=== PATIENT | male | born 1960 | race Caucasian/White ===

== ENCOUNTER 2017-11-28 13:43 | Inpatient (IN) | payer OTHER ==
[2017-11-28] MEDS ORDERED: ONDANSETRON 4 MG/2 ML VIAL IVP STA (14:12)
[2017-11-28] MEDS ORDERED: MORPHINE SULFATE 4 MG/ML SYRINGE IV STA (14:12)
[2017-11-28] MEDS ORDERED: SODIUM CHLORIDE 0.9% 1,000 ML IV STA (14:12)
--- NOTE | 2017-11-28 14:12 | ED ---
General Adult HPI - General Chief complaint: Nausea/Vomiting/Diarrhea Stated complaint: Abd.pain/nausea Time Seen by Provider: 11/28/17 13:56 Source: family, RN notes reviewed Mode of arrival: wheelchair Limitations: no limitations - History of Present Illness Initial comments: Patient's a 57-year-old male with significant past medical history for melanoma of his long, presented to the emergency room today with chief complaint of symptoms of nausea vomiting and diarrhea over the last 4 days. Patient having a difficult time keeping anything down at home last 4 days. States had an episode of diarrhea this morning. She is passing small 1 of gas. She states exam feels more full distended. States has had multiple episodes of nausea vomiting. No signs of blood in the emesis or stool. Does make to abdominal cramping throughout the abdomen worse on the left side. Denies any other complaints.Patient denies any recent fever, chills, shortness of breath, chest pain, back pain, numbness or tingling, dysuria or hematuria, constipation, headaches or visual changes, or any other complaints. - Related Data Home Medications Medication Instructions Recorded Confirmed Losartan [Cozaar] 50 mg PO DAILY 11/28/17 11/28/17 Metoprolol Succinate (ER) [Toprol 50 mg PO DAILY 11/28/17 11/28/17 Xl] Omeprazole 20 mg PO DAILY 11/28/17 11/28/17 Phenylephrine HCl [Sudafed PE] 10 mg PO Q6H PRN 11/28/17 11/28/17 Tafinlar(Unknown) 2 tab PO BID 11/28/17 11/28/17 Trametinib Dimethyl Sulfoxide 0.5 mg PO DAILY 11/28/17 11/28/17 [Mekinist] Allergies Allergy/AdvReac Type Severity Reaction Status Date / Time acetaminophen Allergy Unknown Verified 11/28/17 14:40 fish oil Allergy Unknown Verified 11/28/17 14:40 meclizine Allergy Unknown Verified 11/28/17 14:40 NSAIDS (Non-Steroidal Allergy Unknown Verified 11/28/17 14:40 Anti-Inflamma Review of Systems ROS Statement: Those systems with pertinent positive or pertinent negative responses have been documented in the HPI. ROS Other: All systems not noted in ROS Statement are negative. Past Medical History Past Medical History: Cancer, Hypertension Additional Past Medical History / Comment(s): vertigo, lung cancer, spinal stenosis History of Any Multi-Drug Resistant Organisms: None Reported Past Surgical History: Back Surgery, Cholecystectomy, Hernia Repair, Joint Replacement Past Psychological History: Anxiety Smoking Status: Never smoker Past Alcohol Use History: None Reported Past Drug Use History: None Reported General Exam - General Exam Comments Initial Comments: General: The patient is awake and alert, in no distress, and does not appear acutely ill. Eye: Extra-ocular movements are intact. No nystagmus. There is normal conjunctiva bilaterally. No signs of icterus. Ears, nose, mouth and throat: There are moist mucous membranes and no oral lesions. Neck: The neck is supple, there is no tenderness or JVD. Cardiovascular: There is a regular rate and rhythm. No murmur, rub or gallop is appreciated. Respiratory: Lungs are clear to auscultation, respirations are non-labored, breath sounds are equal. No wheezes, stridor, rales, or rhonchi. Gastrointestinal: Abdomen soft on palpation. Patient does have tenderness greatest in the left upper and lower quads. No rebound, guarding or CVA tenderness. Musculoskeletal: Normal ROM, no tenderness. Sensation intact. Strength 5/5. Pulses equal bilaterally 2+. Neurological: A&O x 3. CN II-XII intact, There are no obvious motor or sensory deficits. Coordination appears grossly intact. Speech is normal. Skin: Skin is warm and dry and no rashes or lesions are noted. Psychiatric: Cooperative, appropriate mood & affect, normal judgment. Limitations: no limitations Course Vital Signs 11/28/17 13:49 Temperature 98.5 F Pulse Rate 84 Respiratory 18 Rate Blood Pressure 95/63 O2 Sat by Pulse 100 Oximetry Medical Decision Making - Medical Decision Making Patient reexamined at this time still experiencing some discomfort to the abdomen. Patient's labs been reviewed. Patient has had nausea vomiting for the past [address] shows 2.1 cm suspicious mass in the right upper lobe. 4 mm nonspecific left upper lobe nodule. There are multiple small soft tissue nodules in the anterior mesentery within the left upper quadrant. Findings are suspicious for omental or mesenteric seeding. There appears to be larger soft tissue density measuring 3 cm the left upper quadrant anterior Sh[place]an for small bowel masses as read by radiology doctor Ling. Patient still continued pain here in the emergency room sent nausea vomiting. Will be admitted to the hospital for intractable nausea vomiting abdominal pain. - Lab Data Result diagrams: 11/28/17 14:19 11/28/17 14:19 Lab Results 11/28/17 11/28/17 11/28/17 Range/Units 14:19 14:19 14:19 WBC 7.5 (3.8-10.6) k/uL RBC 3.93 L (4.30-5.90) m/uL Hgb 10.3 L (13.0-17.5) gm/dL Hct 31.3 L (39.0-53.0) % MCV 79.6 L D (80.0-100.0) fL MCH 26.3 (25.0-35.0) pg MCHC 33.0 (31.0-37.0) g/dL RDW 14.4 (11.5-15.5) % Plt Count 421 (150-450) k/uL Neutrophils % 64 % Lymphocytes % 22 % Monocytes % 11 % Eosinophils % 1 % Basophils % 0 % Neutrophils # 4.8 (1.3-7.7) k/uL Lymphocytes # 1.6 (1.0-4.8) k/uL Monocytes # 0.8 (0-1.0) k/uL Eosinophils # 0.1 (0-0.7) k/uL Basophils # 0.0 (0-0.2) k/uL Hypochromasia Slight Poikilocytosis Slight PT 9.8 (9.0-12.0) sec INR 1.0 (<1.2) APTT 28.4 (22.0-30.0) sec Sodium 137 (137-145) mmol/L Potassium 4.0 (3.5-5.1) mmol/L Chloride 104 (98-107) mmol/L Carbon Dioxide 24 (22-30) mmol/L Anion Gap 9 mmol/L BUN 25 H (9-20) mg/dL Creatinine 0.91 (0.66-1.25) mg/dL Est GFR (CKD-EPI)AfAm >90 (>60 ml/min/1.73 sqM) Est GFR (CKD-EPI)NonAf >90 (>60 ml/min/1.73 sqM) Glucose 104 H (74-99) mg/dL Calcium 9.4 (8.4-10.2) mg/dL Total Bilirubin 0.3 (0.2-1.3) mg/dL AST 26 (17-59) U/L ALT 33 (21-72) U/L Alkaline Phosphatase 102 (38-126) U/L Total Protein 6.1 L (6.3-8.2) g/dL Albumin 3.5 (3.5-5.0) g/dL Amylase 63 (30-110) U/L Lipase 156 (23-300) U/L Disposition Clinical Impression: Intractable nausea and vomiting, Abdominal pain Disposition: TRANSFER TO PSYCH HOSP/UNIT Condition: Stable Is patient prescribed a controlled substance at d/c from ED?: No Referrals: Nissa England III, MD [Primary Care Provider] - 1-2 days Time of Disposition: 15:54
[2017-11-28 14:48] LABS: ALT 33 U/L (21-72); AST 26 U/L (17-59); Albumin 3.5 g/dL (3.5-5.0); Alkaline Phosphatase 102 U/L (38-126); Amylase 63 U/L (30-110); Anion Gap 9 mmol/L; Blood Urea Nitrogen 25 mg/dL (9-20); Calcium 9.4 mg/dL (8.4-10.2); Carbon Dioxide 24 mmol/L (22-30); Chloride 104 mmol/L (98-107); Glucose 104 mg/dL (74-99); Lipase 156 U/L (23-300); Sodium 137 mmol/L (137-145); Total Bilirubin 0.3 mg/dL (0.2-1.3); Total Protein 6.1 g/dL (6.3-8.2)
[2017-11-28 15:07] LABS: Partial Thromboplastin Time 28.4 sec (22.0-30.0); Prothrombin Time 9.8 sec (9.0-12.0)
[2017-11-28 15:09] LABS: Basophils % (A) 0 %; Eosinophils # (A) 0.1 k/uL (0-0.7); Eosinophils % (A) 1 %; HCT 31.3 % (39.0-53.0); HGB 10.3 gm/dL (13.0-17.5); Hypochromasia Slight; Lymphocytes # (A) 1.6 k/uL (1.0-4.8); Lymphocytes % (A) 22 %; MCH 26.3 pg (25.0-35.0); Mean Platelet Volume 6.7; Monocytes # (A) 0.8 k/uL (0-1.0); Monocytes % (A) 11 %; Neutrophils # (A) 4.8 k/uL (1.3-7.7); Neutrophils % (A) 64 %; Platelet Count 421 k/uL (150-450); Poikilocytosis Slight; RBC 3.93 m/uL (4.30-5.90); RDW 14.4 % (11.5-15.5); WBC 7.5 k/uL (3.8-10.6)
[2017-11-28 15:10] LABS: MCV 79.6 fL (80.0-100.0)
--- NOTE | 2017-11-28 15:35 | CT ---
EXAMINATION TYPE: CT ChestAbdPelvis w con DATE OF EXAM: 11/28/2017 COMPARISON: 07/24/2012 HISTORY: Abdominal pain and vomiting x [address] DLP: 2218 mGycm Automated exposure control for dose reduction was used. CONTRAST: CT scan of the chest, abdomen and pelvis is performed without Oral Contrast and with IV Contrast, pat ient injected with 100 mL of Isovue M300. FINDINGS: LUNGS: There is a 2.1 cm mass anterior segment right upper lobe. No pneumothorax, consolidation, or p leural effusion. Within the left upper lobe there is a 4 mm nodule laterally image 33. MEDIASTINUM: There is coronary artery calcification. No pathologic adenopathy. OTHER: There is ectasia of the abdominal aorta measuring a maximal dimension of 2.8 cm. Atherosclero tic changes are noted. LIVER/GB: Previous gallbladder surgery noted. Mild intrahepatic biliary ductal dilation likely post c holecystectomy. PANCREAS: No significant abnormality is seen. SPLEEN: No significant abnormality is seen. ADRENALS: No significant abnormality is seen. KIDNEYS: No significant abnormality is seen. BOWEL: Diverticulosis of colon noted. No oral contrast is seen therefore assessment for bowel wall t hickening or bowel mass is limited. Retained fecal debris throughout the colon also limits assessment . There is concern for colonic or small bowel mass correlate with additional imaging or direct visual ization. There is soft tissue fullness measuring 3.1 cm within the anterior left abdomen which could be related to small bowel wall involvement and small bowel ligaments the. Without contrast is difficu lt to determine if this is related to the wall the bowel or adjacent conglomerate adenopathy. LYMPH NODES: No greater than 1 cm abdominal or pelvic lymph nodes are appreciated. However there are multiple small less than 1 cm hypoechoic nodules particularly within the left anterior mesentery susp icious for mesenteric seeding. OSSEOUS STRUCTURES: Hypertrophic and degenerative changes spine noted. Correlate for previous laminec kassie lower lumbar spine. OTHER: Atherosclerotic changes of the vasculature. No free fluid or free air. Correlate for previous abdominal wall surgery. Metallic densities noted. IMPRESSION: 1. There is a 2.1 cm suspicious mass right upper lobe. 4 mm nonspecific left upper lobe nodule. 2. There are multiple small soft tissue nodules in the anterior mesentery within the left upper quadr ant. Findings are suspicious for omental or mesenteric seeding. There appears to be a larger t soft t issue density measuring 3 cm the left upper quadrant anteriorly correlate for small bowel mass or con glomerate adenopathy. Favor small bowel mass and neoplasm.
--- NOTE | 2017-11-28 15:36 | XR ---
EXAMINATION TYPE: XR chest 2V DATE OF EXAM: 11/28/2017 COMPARISON: 04/25/2013 TECHNIQUE: PA and lateral views submitted. HISTORY: Cough FINDINGS: On the lateral view there is a mass within the right upper lobe measuring 2.8 cm. No consolidation, p leural effusion or pneumothorax. Heart size within normal limits. IMPRESSION: 1. Right upper lobe lung mass suspicious for malignancy.
[2017-11-28] MEDS ORDERED: HYDROmorphone 1 MG/ML 1 ML SYRINGE IVP PRN (15:55)
[2017-11-28] MEDS ORDERED: SODIUM CHLORIDE 0.9% 1,000 ML IV ONE (15:55)
[2017-11-28] MEDS ORDERED: MORPHINE SULFATE 4 MG/ML SYRINGE IV PRN (15:55)
[2017-11-28] MEDS ORDERED: NALOXONE 0.4 MG/ML 1 ML VIAL IV PRN (15:55)
--- NOTE | 2017-11-28 16:06 | ED ---
Medical Decision Making - Lab Data Result diagrams: 11/28/17 14:19 11/28/17 14:19 Lab Results 11/28/17 11/28/17 11/28/17 Range/Units 14:19 14:19 14:19 WBC 7.5 (3.8-10.6) k/uL RBC 3.93 L (4.30-5.90) m/uL Hgb 10.3 L (13.0-17.5) gm/dL Hct 31.3 L (39.0-53.0) % MCV 79.6 L D (80.0-100.0) fL MCH 26.3 (25.0-35.0) pg MCHC 33.0 (31.0-37.0) g/dL RDW 14.4 (11.5-15.5) % Plt Count 421 (150-450) k/uL Neutrophils % 64 % Lymphocytes % 22 % Monocytes % 11 % Eosinophils % 1 % Basophils % 0 % Neutrophils # 4.8 (1.3-7.7) k/uL Lymphocytes # 1.6 (1.0-4.8) k/uL Monocytes # 0.8 (0-1.0) k/uL Eosinophils # 0.1 (0-0.7) k/uL Basophils # 0.0 (0-0.2) k/uL Hypochromasia Slight Poikilocytosis Slight PT 9.8 (9.0-12.0) sec INR 1.0 (<1.2) APTT 28.4 (22.0-30.0) sec Sodium 137 (137-145) mmol/L Potassium 4.0 (3.5-5.1) mmol/L Chloride 104 (98-107) mmol/L Carbon Dioxide 24 (22-30) mmol/L Anion Gap 9 mmol/L BUN 25 H (9-20) mg/dL Creatinine 0.91 (0.66-1.25) mg/dL Est GFR (CKD-EPI)AfAm >90 (>60 ml/min/1.73 sqM) Est GFR (CKD-EPI)NonAf >90 (>60 ml/min/1.73 sqM) Glucose 104 H (74-99) mg/dL Calcium 9.4 (8.4-10.2) mg/dL Total Bilirubin 0.3 (0.2-1.3) mg/dL AST 26 (17-59) U/L ALT 33 (21-72) U/L Alkaline Phosphatase 102 (38-126) U/L Total Protein 6.1 L (6.3-8.2) g/dL Albumin 3.5 (3.5-5.0) g/dL Amylase 63 (30-110) U/L Lipase 156 (23-300) U/L Disposition Clinical Impression: Intractable nausea and vomiting, Abdominal pain Disposition: ADMITTED IP TO [facility] Condition: Stable Is patient prescribed a controlled substance at d/c from ED?: No Referrals: Nissa England III, MD [Primary Care Provider] - 1-2 days
[2017-11-28 17:56] LABS: Appearance,Urine Clear (Clear); Bilirubin,Urine Negative (Negative); Blood,Urine Negative (Negative); Color,Urine Yellow; Glucose,Urine (UA) Negative (Negative); Ketones,Urine Negative (Negative); Leukocyte Esterase,Urine Negative (Negative); Nitrite,Urine Negative (Negative); Protein,Urine Trace (Negative); Urobilinogen,Urine <2.0 mg/dL (<2.0)
[2017-11-28] MEDS ORDERED: LORazepam 2 MG/ML INJ IV PRN (18:25)
[2017-11-28] MEDS ORDERED: TEMAZEPAM 15 MG CAP PO PRN (18:25)
[2017-11-28] MEDS ORDERED: ALPRAZolam 0.25 MG TAB PO PRN (18:25)
[2017-11-28 18:27] LABS: Specific Gravity,Urine 1.047 (1.001-1.035)
[2017-11-28] MEDS ORDERED: PHENYLEPHRINE HCL 10 MG PO PRN (18:27)
[2017-11-28] MEDS ORDERED: hydrALAZINE HCL 20 MG/ML 1 ML VIAL IVP PRN (18:27)
[2017-11-28 19:20] LABS: Prothrombin Time 10.2 sec (9.0-12.0)
[2017-11-28] MEDS: ONDANSETRON 4 MG/2 ML VIAL IVP PRN (19:36)
[2017-11-28] MEDS: HYDROmorphone 1 MG/ML 1 ML SYRINGE IVP PRN ×2 (19:37→23:51)
[2017-11-28 20:07] LABS: Amphetamine Screen,Urine Not Detected (NotDetected); Barbiturate Screen,Urine Not Detected (NotDetected); Benzodiazepines Screen,Urine Not Detected (NotDetected); Cocaine Screen,Urine Not Detected (NotDetected); Methadone Screen, Urine Not Detected (NotDetected); Opiate Screen,Urine Detected (NotDetected); Oxycodone Screen, Urine Not Detected (NotDetected); Phencyclidine Screen,Urine Not Detected (NotDetected); Tricyclic Antidepressant,Urine Not Detected (NotDetected); Urn Cannabinoid Scrn Detected (NotDetected)
--- NOTE | 2017-11-28 20:20 | HP ---
HISTORY AND PHYSICAL DATE OF SERVICE: 11/28/2017 CHIEF COMPLAINT: Nausea, vomiting. HISTORY OF PRESENT ILLNESS: This 57-year-old gentleman with past medical history of hypertension, history of vertigo, lung cancer, history of ankylosing spondylitis, spinal stenosis, also had a history of melanoma. The patient received chemotherapy from Dr. De La O. Currently the patient is complaining of nausea and vomiting, unable to keep anything down for the last 4 days. The patient apparently lost about 10 pounds in the last 1 week. Because of significant difficulties, the patient came to [facility] and admitted for further evaluation and treatment. There is no history of fever, rigors. No history of headache, loss of consciousness. A CT scan of the chest, abdomen and pelvis was done on admission which showed a 2.1 cm suspicious mass in the right upper lobe and 4 mm nonspecific left upper lobe nodule also. Multiple small soft tissue nodules in the anterior mesentery within the left upper quadrant was also noted. was also suspected. Adenopathy was also suspected. Patient admitted for further evaluation and treatment. There is no history of fever, rigors or chills at this time. The patient is followed by Dr. England in the outpatient setting. PAST MEDICAL HISTORY: Of melanoma, hypertension, vertigo, lung cancer, spinal stenosis, back surgery, ankylosing spondylitis. MEDICATIONS ARE: 3. Sudafed 10 mg q.6h. 4. Omeprazole 20 mg daily. 5. Toprol-XL 50 mg. 6. Cozaar 50 mg daily. ALLERGIES: ACETAMINOPHEN, FISH OIL, . FAMILY HISTORY: No history of heart disease or strokes family. SOCIAL HISTORY: No history of smoking. No history of alcohol intake. REVIEW OF SYSTEMS: ENT: No diminished hearing or vision. CARDIOVASCULAR: No angina or palpitations. RESPIRATORY: No cough or hemoptysis. GASTROENTEROLOGY: As mentioned earlier. no dysuria, retention. NERVOUS SYSTEM: As mentioned earlier. ALLERGIES/IMMUNOLOGY: No asthma or hayfever. MUSCULOSKELETAL as mentioned earlier. HEMATOLOGY/ONCOLOGY: No history of anemia. ENDOCRINE: No history of diabetes or hypothyroidism. CONSTITUTIONAL: As mentioned earlier. Dermatology: Negative. Rheumatology: Negative. Psychiatry: As mentioned earlier. PHYSICAL EXAMINATION: GENERAL: Alert, oriented x3. VITAL SIGNS: Pulse 75. Blood pressure 100/58, respirations 16, temperature 98.9 , pulse ox 100 percent on room air. HEENT: Conjunctivae normal. Oral mucosa moist. NECK is no jugular venous distention. No carotid bruit. No lymph node enlargement. CARDIOVASCULAR: S1, S2 muffled. RESPIRATORY: Breath sounds diminished in the bases. No rhonchi. No crackles. ABDOMEN: Soft. Mild diffuse discomfort in the abdomen. Mild diffuse distention present. No guarding. No rigidity. No mass palpable. No ascites. LEGS: No edema. No swelling. NERVOUS SYSTEM: Higher functions as mentioned earlier. Moves all four extremities. No focal motor or sensory deficits. LYMPHATICS: No lymph nodes palpable in the neck, axillae or groin. SKIN: No ulcer, rash or bleeding. LAB STUDIES: WBC 11.7, hemoglobin 10.3. ASSESSMENT: 1. Nausea, vomiting, abdominal pain, possible acute gastritis. 2. Multiple findings in the CT scan of the abdomen, rule out metastatic malignancy. 3. Hypertension. 4. History of melanoma. 5. History of lung cancer. 6. History of vertigo. 8. Ankylosing spondylitis. 9. History of cholecystectomy. 10.History of anxiety. RECOMMENDATIONS AND DISCUSSION: In this 57-year-old gentleman who presented with multiple complex medical issues , we will monitor the patient closely. Continue the current medications, management and symptomatic treatment. We will initiate symptomatic treatment and keep the patient n.p.o. Hematology/Oncology evaluation. IV fluids. Guarded prognosis because of multiple complex medical issues. Further recommendations to follow. A copy of dictation being forwarded to Dr. England who is the primary physician. See orders for details. MMODL / IJN: [id number] / MTDD
[2017-11-28] MEDS: PANTOPRAZOLE 40 MG/10 ML VIAL IVP SCH (22:31)
[2017-11-28] MEDS: HEPARIN SODIUM,PORCINE 5,000 UNIT/ML 1 ML VIAL SQ SCH (22:31)
[2017-11-28] MEDS: [UNRECOGNIZED DRUG - OTHER] PO SCH (22:37)
[2017-11-29] MEDS: [UNRECOGNIZED DRUG - OTHER] PO SCH ×2 (07:59→20:48)
[2017-11-29] MEDS: HEPARIN SODIUM,PORCINE 5,000 UNIT/ML 1 ML VIAL SQ SCH ×2 (07:59→20:49)
[2017-11-29] MEDS: PANTOPRAZOLE 40 MG/10 ML VIAL IVP SCH ×2 (08:00→20:49)
[2017-11-29] MEDS: HYDROmorphone 1 MG/ML 1 ML SYRINGE IVP PRN ×3 (08:02→20:42)
[2017-11-29 08:54] LABS: Basophils % (A) 0 %; Eosinophils # (A) 0.1 k/uL (0-0.7); Eosinophils % (A) 1 %; HCT 33.4 % (39.0-53.0); HGB 10.8 gm/dL (13.0-17.5); Hypochromasia Slight; Lymphocytes # (A) 1.6 k/uL (1.0-4.8); Lymphocytes % (A) 21 %; MCH 25.9 pg (25.0-35.0); MCHC 32.4 g/dL (31.0-37.0); MCV 79.8 fL (80.0-100.0); Mean Platelet Volume 6.9; Monocytes # (A) 0.7 k/uL (0-1.0); Monocytes % (A) 8 %; Neutrophils # (A) 5.2 k/uL (1.3-7.7); Neutrophils % (A) 65 %; Platelet Count 468 k/uL (150-450); RBC 4.19 m/uL (4.30-5.90); RDW 14.6 % (11.5-15.5); WBC 7.9 k/uL (3.8-10.6)
[2017-11-29 09:21] LABS: ALT 80 U/L (21-72); AST 81 U/L (17-59); Albumin 3.6 g/dL (3.5-5.0); Alkaline Phosphatase 269 U/L (38-126); Anion Gap 10 mmol/L; Blood Urea Nitrogen 17 mg/dL (9-20); Calcium 8.9 mg/dL (8.4-10.2); Carbon Dioxide 26 mmol/L (22-30); Chloride 103 mmol/L (98-107); Glucose 117 mg/dL (74-99); Potassium 4.1 mmol/L (3.5-5.1); Sodium 139 mmol/L (137-145); Total Bilirubin 0.5 mg/dL (0.2-1.3); Total Protein 6.4 g/dL (6.3-8.2)
--- NOTE | 2017-11-29 10:20 | P.CONS ---
History of Present Illness - Reason for Consult Consult date: 11/29/17 metastatic melanoma Requesting physician: Rafiq Heaton - Chief Complaint abd pain, N,V - History of Present Illness Mr. Shepherd is a male pt of Dr. De La O, who moved here from [place] in Oct 2017. Initially pt was diagnosed with left yazidi melanoma in 2002, treated with wide excision. June 2016 he presented with sudden onset vertigo and syncopal episode, brain MRI on 07/16/16 was negative, CT chest, as part of his work up, revealed 1.5 cm nodule in RML, repeat CT chest 11/24/16 revealed multiple lung nodules, right perihilar node measuing 2 cm, PET 12/22/16 which revealed 1.8x1.9cm bilobed nodule in RML, 8mm nodule in LLL without significant uptake and hypermetabolic right hilar node, diagnostic bronchoscopy with bronchial washing and FNA of right hilar node were negative, CT guided biopsy of RML nodule on 01/26/17 was positive for metastatic melanoma, positive for BRAF V600E mutation. He went to [facility] for a second opinion and the combination of Dabrafenib/trametinib were recommended and he started it in March 2017. He had a follow up CT CAP 09/28/17 which showed increase in RML nodule (from 8mm on CT scan done on 06/15/17 to 17mm) otherwise stable disease. He had extensive neurological work up for his vertigo/dizzyness/nausea, which started prior to starting dabrafenib/trametinib, work up all came back negative for metastatic disease and was attributed to spinal stenosis. All treatment and diagnostic testing were done at [facility], [facility] [place]. He relocated to [place] October 2017 and established care with Dr. De La O . At that time Dr. De La O discussed progression of disease in the lung but, plan was for re-imaging, if definite progression then changes to treatment were going to be discussed (immunotherapy or encorafenib/binimetinib). Patient came to the hospital with complaints of nausea and vomiting, started about 3 weeks ago but has progressed over the last 4 days, associated with a 10 pound weight loss, left upper quadrant, left flank discomfort, patient denied hematemesis, diarrhea or constipation, black or bloody stools, it is difficult for him to find a comfortable spot. Appetite is poor, breathing is restricted due to the discomfort, denies cough or hemoptysis, no palpitations, radiating chest pain, swelling or skin changes the patient is aware of. CT scan was done here but, comparison was to a CT in 2013. Patient had a copy of his CT scans from [place], these will be sent to radiology for comparison. Review of Systems 14 point ROS as stated in HPI Past Medical History Past Medical History: Cancer, GERD/Reflux, Hypertension Additional Past Medical History / Comment(s): vertigo, metastatic melanoma-oral chemo, spinal stenosis, anxiety, tinnitus tim ears, upper dental bridge,, gout, "fatty liver", cardiac murmur, herniated discs. aaa History of Any Multi-Drug Resistant Organisms: None Reported Past Surgical History: Back Surgery, Cholecystectomy, Hernia Repair, Tonsillectomy Additional Past Surgical History / Comment(s): bronchocopy, lung bx Past Anesthesia/Blood Transfusion Reactions: Postoperative Nausea & Vomiting ( PONV) Past Psychological History: No Psychological Hx Reported Smoking Status: Former smoker Past Alcohol Use History: Unable to Obtain Past Drug Use History: Unable to Obtain - Past Family History Mother Family Medical History: GERD/Reflux Additional Family Medical History / Comment(s): phlebitis Father Additional Family Medical History / Comment(s): hepatitis not sure type Medications and Allergies Home Medications Medication Instructions Recorded Confirmed Type Losartan [Cozaar] 50 mg PO DAILY 11/28/17 11/28/17 History Metoprolol Succinate (ER) [Toprol 50 mg PO DAILY 11/28/17 11/28/17 History Xl] Omeprazole 20 mg PO DAILY 11/28/17 11/28/17 History Phenylephrine HCl [Sudafed PE] 10 mg PO Q6H PRN 11/28/17 11/28/17 History Tafinlar(Unknown) 2 tab PO BID 11/28/17 11/28/17 History Trametinib Dimethyl Sulfoxide 0.5 mg PO DAILY 11/28/17 11/28/17 History [Mekinist] Allergies Allergy/AdvReac Type Severity Reaction Status Date / Time acetaminophen Allergy Unknown Verified 11/28/17 14:40 fish oil Allergy Unknown Verified 11/28/17 14:40 meclizine Allergy Unknown Verified 11/28/17 14:40 NSAIDS (Non-Steroidal Allergy Unknown Verified 11/28/17 14:40 Anti-Inflamma Physical Exam Vitals: Vital Signs Temp Pulse Pulse Resp BP BP Pulse Ox 11/29/17 05:00 98.1 F 72 16 126/71 96 11/28/17 23:00 98.0 F 76 16 102/52 93 L 11/28/17 19:30 98.1 F 70 16 96/52 99 11/28/17 16:31 98.9 F 75 16 100/58 100 11/28/17 13:49 98.5 F 84 18 95/63 100 Intake and Output 11/28/17 11/29/17 11/29/17 22:59 06:59 14:59 Intake Total 120 1590 Output Total 1300 Balance 120 290 Intake: Intake, IV Titration 1000 Amount Sodium Chloride 0.9% 1, 1000 000 ml @ 100 mls/hr IV . Q10H ONE Rx#:[id number] Oral 120 590 Output: Urine 1300 Other: Voiding Method Urinal Urinal - Constitutional General appearance: cooperative, mild distress, obese - EENT Eyes: anicteric sclerae, EOMI ENT: normal oropharynx - Neck Neck: no lymphadenopathy - Respiratory Respiratory: bilateral: CTA (respirations are restricted due to abd pain) - Cardiovascular Rhythm: regular Heart sounds: normal: S1, S2 leg Peripheral Edema: bilateral: None - Gastrointestinal General gastrointestinal: distended, tenderness (severe) Localized gastrointestinal: tender: RUQ, LUQ (left flank) - Integumentary Integumentary: pale - Neurologic Neurologic: CNII-XII intact - Musculoskeletal Musculoskeletal: strength equal bilaterally - Psychiatric Psychiatric: A&O x's 3, appropriate affect, intact judgment & insight Results CBC & Chem 7: 11/30/17 07:47 11/30/17 07:47 Labs: Abnormal Lab Results - Last 24 Hours (Table) 11/28/17 11/28/17 11/28/17 Range/Units 14:19 14:19 17:32 RBC 3.93 L (4.30-5.90) m/uL Hgb 10.3 L (13.0-17.5) gm/dL Hct 31.3 L (39.0-53.0) % MCV 79.6 L D (80.0-100.0) fL Plt Count (150-450) k/uL BUN 25 H (9-20) mg/dL Glucose 104 H (74-99) mg/dL AST (17-59) U/L ALT (21-72) U/L Alkaline Phosphatase (38-126) U/L Total Protein 6.1 L (6.3-8.2) g/dL Ur Specific [place]kinson 1.047 H (1.001-1.035) Urine Protein Trace H (Negative) Urine Opiates Screen (NotDetected) U Marijuana (THC) Screen (NotDetected) 11/28/17 11/29/17 11/29/17 Range/Units 17:32 08:37 08:37 RBC 4.19 L (4.30-5.90) m/uL Hgb 10.8 L (13.0-17.5) gm/dL Hct 33.4 L (39.0-53.0) % MCV 79.8 L (80.0-100.0) fL Plt Count 468 H (150-450) k/uL BUN (9-20) mg/dL Glucose 117 H (74-99) mg/dL AST 81 H (17-59) U/L ALT 80 H (21-72) U/L Alkaline Phosphatase 269 H (38-126) U/L Total Protein (6.3-8.2) g/dL Ur Specific [place]kinson (1.001-1.035) Urine Protein (Negative) Urine Opiates Screen Detected H (NotDetected) U Marijuana (THC) Screen Detected H (NotDetected) Chest x-ray: report reviewed CT scan - abdomen: report reviewed CT scan - chest: report reviewed CT scan - pelvis: report reviewed Assessment and Plan (1) Metastatic melanoma Narrative/Plan: Pt is currently on dabrafenib and tramtinib for metastatic melanoma since Apr 07. He has outside images of more recent CT scans that have been sent for review and comparison todays. It is unclear if the CT is progression or stability at this time. Await addendum Current Visit: Yes Status: Acute Priority: High Code(s): C79.9 - SECONDARY MALIGNANT NEOPLASM OF UNSPECIFIED SITE SNOMED Code(s): 602032550 (2) Abdominal pain Narrative/Plan: Titration and adjustment of analgesics Current Visit: Yes Status: Acute Priority: High Code(s): R10.9 - UNSPECIFIED ABDOMINAL PAIN SNOMED Code(s): 11866007 (3) Intractable nausea and vomiting Narrative/Plan: Improved slightly with antiemetics. Surgery consulted, barium swallow ordered, possible endoscopy, defer to Surgeon. Dr. Sandoval will review case with them. Current Visit: Yes Status: Acute Priority: High Code(s): R11.2 - NAUSEA WITH VOMITING, UNSPECIFIED SNOMED Code(s): 666636194 Plan: Doctor attests:I have performed a history and physical exam of this pt, discussed with dictator. I agree with dictated note, documented as a scribe.
[2017-11-29 15:03] VITALS: BMI 29.9
--- NOTE | 2017-11-29 15:06 | PN ---
PROGRESS NOTE DATE OF SERVICE: 11/29/2017 This is a 57-year-old gentleman admitted with nausea, vomiting, abdominal pain, is being closely monitored. CAT scan of the abdomen showed multiple findings in the abdomen as well as hilar mass also. The patient has got metastatic melanoma. Surgery has been consulted for further evaluation and possibly EGD. Patient is unable to keep anything down at this time. PAST MEDICAL HISTORY: Reviewed. REVIEW OF SYSTEMS: CARDIOVASCULAR: No angina or palpitations. RESPIRATION: As mentioned earlier. GI: As mentioned earlier. : Negative. NERVOUS SYSTEM: No numbness or weakness. CURRENT MEDICATIONS ARE REVIEWED, INCLUDE: 1. Xanax 0.5 t.i.d. p.r.n. 2. Heparin 5,000 subcu b.i.d. 3. Apresoline 10 mg q.4 p.r.n. 4. Dilaudid 0.5 mg q.3 p.r.n. 5. Ativan 0.5 mg q.6 q.h.s. 6. Narcan 0.2 q.2 p.r.n. 7. Tafinlar 2 tablets p.o. b.i.d. 8. Mekinist 2 mg p.o. daily. 9. Zofran 4 mg q.8 p.r.n. 10.Protonix 40 mg IV b.i.d. 11.Restoril 50 mg q.h.s. PHYSICAL EXAM: Patient is alert, oriented x3, pulse 66, blood pressure 98/51, respiration 19, temperature is 97.5, pulse ox 96% on room air. HEENT: Conjunctivae normal, oral mucosa moist. Neck is no jugular venous distention. No lymph node enlargement. CARDIOVASCULAR: S1, S2, muffled. RESPIRATORY: Breath sounds diminished at the bases, no rhonchi, no crackles. ABDOMEN: Soft. Mild diffuse distention. Mild diffuse tenderness present. No mass palpable. No ascites. LEGS: No edema, no swelling. NERVOUS SYSTEM: Higher functions as mentioned earlier, moves all 4 limbs, no focal motor deficits. LYMPHATICS: No lymph node enlargement in the neck or axillae. SKIN: No ulcers, rashes or bleeding. LABS: WBC is 7.8, hemoglobin is 10.8, other labs are noted. AST and ALT noted. ASSESSMENT: 1. Nausea, vomiting, abdominal pain, possibly acute gastritis. 2. Multiple findings on the CAT scan of the abdomen, possible metastatic malignancy, metastatic melanoma. 3. Hypertension. 4. Increased AST, ALT. 5. Right upper lobe mass lesion, possibly melanoma. 6. History of vertigo. 7. Hypertension. 8. History of ankylosing spondylitis. 9. History of cholecystectomy. 10.History of anxiety. RECOMMENDATION: Recommend to continue current management and symptomatic treatment. At this time continue symptomatic treatment for the pain. Proton inhibitors. Surgical evaluation, possible endoscopies. Guarded prognosis because of multiple complex medical issues. Further recommendations to follow. MMODL / IJN: [id number] /
--- NOTE | 2017-11-29 20:07 | P.GSCN ---
History of Present Illness Consult date: 11/29/17 Reason for Consult: Small bowel mass History of present illness: 57-year-old male with a history of melanoma first diagnosed in 2002. Patient was found have a recurrence of his melanoma last year. The recurrence was identified in the right lung. This was not resectable. He has received much of his care outside of [place]. His latest CAT scan and PET scan seen to be earlier this summer. Presents to the hospital with a 5 day history of intractable vomiting and abdominal pain. CAT scan was performed and shows a suspected mass involving the small bowel with some peritoneal deposits in the left upper quadrant. No definite obstructive pattern is seen on the CAT scan however the patient describes intractable vomiting of food-like material. Stomach is not distended on CAT scan. We were consulted for evaluation. White blood cell count is normal. Review of Systems The patient denies any acute changes in vision or hearing, no dysphagia or odynophagia, no chest pain or shortness of breath, no dysuria or hematuria, no headache, no runny nose, no rectal bleeding or melena, no unexplained weight loss Past Medical History Past Medical History: Cancer, GERD/Reflux, Hypertension Additional Past Medical History / Comment(s): vertigo, metastatic melanoma-oral chemo, spinal stenosis, anxiety, tinnitus tim ears, upper dental bridge,, gout, "fatty liver", cardiac murmur, herniated discs. aaa History of Any Multi-Drug Resistant Organisms: None Reported Past Surgical History: Back Surgery, Cholecystectomy, Hernia Repair, Tonsillectomy Additional Past Surgical History / Comment(s): bronchocopy, lung bx Past Anesthesia/Blood Transfusion Reactions: Postoperative Nausea & Vomiting ( PONV) Past Psychological History: No Psychological Hx Reported Smoking Status: Former smoker Past Alcohol Use History: Unable to Obtain Past Drug Use History: Unable to Obtain - Past Family History Mother Family Medical History: GERD/Reflux Additional Family Medical History / Comment(s): phlebitis Father Additional Family Medical History / Comment(s): hepatitis not sure type Medications and Allergies Home Medications Medication Instructions Recorded Confirmed Type Losartan [Cozaar] 50 mg PO DAILY 11/28/17 11/28/17 History Metoprolol Succinate (ER) [Toprol 50 mg PO DAILY 11/28/17 11/28/17 History Xl] Omeprazole 20 mg PO DAILY 11/28/17 11/28/17 History Phenylephrine HCl [Sudafed PE] 10 mg PO Q6H PRN 11/28/17 11/28/17 History Tafinlar(Unknown) 2 tab PO BID 11/28/17 11/28/17 History Trametinib Dimethyl Sulfoxide 0.5 mg PO DAILY 11/28/17 11/28/17 History [Mekinist] Allergies Allergy/AdvReac Type Severity Reaction Status Date / Time acetaminophen Allergy Unknown Verified 11/28/17 14:40 fish oil Allergy Unknown Verified 11/28/17 14:40 meclizine Allergy Unknown Verified 11/28/17 14:40 NSAIDS (Non-Steroidal Allergy Unknown Verified 11/28/17 14:40 Anti-Inflamma Surgical - Exam Vital Signs Temp Pulse Resp BP Pulse Ox 98.5 F 84 18 95/63 100 11/28/17 13:49 11/28/17 13:49 11/28/17 13:49 11/28/17 13:49 11/28/17 13:49 Physical exam: General: Well-developed, well-nourished HEENT: Normocephalic, sclerae nonicteric Abdomen: Left upper quadrant tenderness with fullness, nondistended Extremities: No edema Neuro: Alert and oriented Results - Labs 11/29/17 08:37 11/29/17 08:37 Abnormal Lab Results - Last 24 Hours (Table) 11/28/17 11/29/17 11/29/17 Range/Units 17:32 08:37 08:37 RBC 4.19 L (4.30-5.90) m/uL Hgb 10.8 L (13.0-17.5) gm/dL Hct 33.4 L (39.0-53.0) % MCV 79.8 L (80.0-100.0) fL Plt Count 468 H (150-450) k/uL Glucose 117 H (74-99) mg/dL AST 81 H (17-59) U/L ALT 80 H (21-72) U/L Alkaline Phosphatase 269 H (38-126) U/L Urine Opiates Screen Detected H (NotDetected) U Marijuana (THC) Screen Detected H (NotDetected) Microbiology - Last 24 Hours (Table) 11/28/17 14:19 Blood Culture - Preliminary Blood No Growth after 24 hours Diabetes panel 11/29/17 Range/Units 08:37 Sodium 139 (137-145) mmol/L Potassium 4.1 (3.5-5.1) mmol/L Chloride 103 (98-107) mmol/L Carbon Dioxide 26 (22-30) mmol/L BUN 17 (9-20) mg/dL Creatinine 1.02 (0.66-1.25) mg/dL Glucose 117 H (74-99) mg/dL Calcium 8.9 (8.4-10.2) mg/dL AST 81 H (17-59) U/L ALT 80 H (21-72) U/L Alkaline Phosphatase 269 H (38-126) U/L Total Protein 6.4 (6.3-8.2) g/dL Albumin 3.6 (3.5-5.0) g/dL Calcium panel 11/29/17 Range/Units 08:37 Calcium 8.9 (8.4-10.2) mg/dL Albumin 3.6 (3.5-5.0) g/dL Pituitary panel 11/29/17 Range/Units 08:37 Sodium 139 (137-145) mmol/L Potassium 4.1 (3.5-5.1) mmol/L Chloride 103 (98-107) mmol/L Carbon Dioxide 26 (22-30) mmol/L BUN 17 (9-20) mg/dL Creatinine 1.02 (0.66-1.25) mg/dL Glucose 117 H (74-99) mg/dL Calcium 8.9 (8.4-10.2) mg/dL Adrenal panel 11/29/17 Range/Units 08:37 Sodium 139 (137-145) mmol/L Potassium 4.1 (3.5-5.1) mmol/L Chloride 103 (98-107) mmol/L Carbon Dioxide 26 (22-30) mmol/L BUN 17 (9-20) mg/dL Creatinine 1.02 (0.66-1.25) mg/dL Glucose 117 H (74-99) mg/dL Calcium 8.9 (8.4-10.2) mg/dL Total Bilirubin 0.5 (0.2-1.3) mg/dL AST 81 H (17-59) U/L ALT 80 H (21-72) U/L Alkaline Phosphatase 269 H (38-126) U/L Total Protein 6.4 (6.3-8.2) g/dL Albumin 3.6 (3.5-5.0) g/dL Assessment and Plan (1) Intractable nausea and vomiting Narrative/Plan: Suspect small bowel junction at site of CAT scan findings. We'll order a upper GI small bowel series. Possible laparotomy with bowel resection or bypass following that. Current Visit: Yes Status: Acute Code(s): R11.2 - NAUSEA WITH VOMITING, UNSPECIFIED SNOMED Code(s): 525748860
[2017-11-30] MEDS: PANTOPRAZOLE 40 MG/10 ML VIAL IVP SCH ×2 (08:01→22:39)
[2017-11-30] MEDS: HEPARIN SODIUM,PORCINE 5,000 UNIT/ML 1 ML VIAL SQ SCH ×2 (08:02→22:39)
[2017-11-30] MEDS: HYDROmorphone 1 MG/ML 1 ML SYRINGE IVP PRN ×4 (08:04→22:52)
[2017-11-30] MEDS: ONDANSETRON 4 MG/2 ML VIAL IVP PRN ×2 (08:04→16:47)
[2017-11-30 08:10] LABS: Basophils % (A) 1 %; Eosinophils # (A) 0.1 k/uL (0-0.7); Eosinophils % (A) 2 %; HCT 32.6 % (39.0-53.0); HGB 10.3 gm/dL (13.0-17.5); Hypochromasia Slight; Lymphocytes # (A) 1.5 k/uL (1.0-4.8); Lymphocytes % (A) 18 %; MCH 25.3 pg (25.0-35.0); MCHC 31.6 g/dL (31.0-37.0); MCV 80.2 fL (80.0-100.0); Mean Platelet Volume 6.4; Monocytes # (A) 0.7 k/uL (0-1.0); Monocytes % (A) 8 %; Neutrophils # (A) 5.6 k/uL (1.3-7.7); Neutrophils % (A) 69 %; Platelet Count 469 k/uL (150-450); Poikilocytosis Slight; RBC 4.06 m/uL (4.30-5.90); RDW 14.4 % (11.5-15.5); WBC 8.1 k/uL (3.8-10.6)
[2017-11-30 08:26] LABS: ALT 64 U/L (21-72); AST 43 U/L (17-59); Albumin 3.5 g/dL (3.5-5.0); Alkaline Phosphatase 228 U/L (38-126); Anion Gap 9 mmol/L; Blood Urea Nitrogen 20 mg/dL (9-20); Carbon Dioxide 24 mmol/L (22-30); Chloride 106 mmol/L (98-107); Glucose 107 mg/dL (74-99); Potassium 4.5 mmol/L (3.5-5.1); Sodium 139 mmol/L (137-145); Total Bilirubin 0.5 mg/dL (0.2-1.3); Total Protein 6.3 g/dL (6.3-8.2)
--- NOTE | 2017-11-30 11:49 | FL ---
EXAMINATION TYPE: FL UGI w esophagus w sm bowel DATE OF EXAM: 11/30/2017 COMPARISON: CT chest abdomen pelvis 11/28/2017 HISTORY: Pain rule out small bowel obstruction in a patient with abnormal CT scan. TECHNIQUE: An air contrast contrast UGI study is performed with small bowel follow through. FINDINGS: Dish Cloth Inspector image of the abdomen shows no gross abnormality. The esophagus shows normal motility and emptying into the stomach. No evidence of hiatal hernia or s tricture noted. The stomach shows normal distensibility, peristalsis, and mucosal folds. No evidence of any mass or ulcer disease. No significant esophageal reflux was seen during real time performance of this study. Mild luminal narrowing at the level of the duodenal bulb may reflect prior ulcer disease. Underlying lesion is not excluded although CT does not demonstrate definite lesions region. No obstructive thomson e appreciated. The small bowel study shows normal transit to the colon in less than 120 minutes. There is normal mu cosal fold pattern throughout the small bowel. There is no evidence of any stricture or filling defe ct noted. The terminal ileum is unremarkable. IMPRESSION: 1. Luminal narrowing at the level of the duodenal bulb could be related to spasm however underlying s carring from prior ulcer disease is not excluded. Underlying lesion is felt to be less likely althoug h not entirely excluded. Consider direct visualization. 2. Remainder of examination felt to be within normal limits.
[2017-11-30] MEDS: [UNRECOGNIZED DRUG - OTHER] PO SCH ×2 (11:51→22:40)
--- NOTE | 2017-11-30 13:01 | P.PN ---
Subjective Progress Note Date: 11/30/17 Principal diagnosis: Intractable vomiting Patient still having episodes of dry heaves. 1 episode of bilious emesis. Today's upper GI was reviewed. There does appear to be slight narrowing in the proximal duodenum. The area in the left upper quadrant involving the proximal jejunum however appears normal. There is no evidence of small bowel obstruction. Objective - Vital Signs Vital signs: Vital Signs Temp 98.5 F 11/30/17 05:00 Pulse 68 11/30/17 05:00 Resp 16 11/30/17 05:00 BP 113/68 11/30/17 05:00 Pulse Ox 97 11/30/17 05:00 Intake & Output 11/29/17 11/30/17 11/30/17 18:59 06:59 18:59 Intake Total 160 60 Balance 160 60 Weight 94.801 kg Intake: IV 160 60 kvo 160 60 Other: Voiding Method Urinal Urinal Urinal # Voids 3 - Exam Abdomen: Soft, nondistended, mild left upper quadrant tenderness with fullness - Labs CBC & Chem 7: 11/30/17 07:47 11/30/17 07:47 Labs: Abnormal Lab Results - Last 24 Hours (Table) 11/30/17 11/30/17 Range/Units 07:47 07:47 RBC 4.06 L (4.30-5.90) m/uL Hgb 10.3 L (13.0-17.5) gm/dL Hct 32.6 L (39.0-53.0) % Plt Count 469 H (150-450) k/uL Glucose 107 H (74-99) mg/dL Alkaline Phosphatase 228 H (38-126) U/L Microbiology - Last 24 Hours (Table) 11/28/17 14:19 Blood Culture - Preliminary Blood No Growth after 24 hours Assessment and Plan (1) Intractable nausea and vomiting Narrative/Plan: We'll plan upper endoscopy at this time. Possible dilation. Risks of bleeding and perforation reviewed. He understands and wishes to proceed. Current Visit: Yes Status: Acute Priority: High Code(s): R11.2 - NAUSEA WITH VOMITING, UNSPECIFIED SNOMED Code(s): 290295828
--- NOTE | 2017-11-30 13:40 | PN ---
PROGRESS NOTE DATE OF SERVICE: 11/30/2017 This 57-year-old gentleman who was admitted with nausea, vomiting and abdominal pain suspected to have duodenal compression in the barium follow through. Dr. Koch is following the patient. No chest pain. No palpitations. Also complained of diffuse abdominal pain and distention also. PHYSICAL EXAMINATION: On exam, alert and oriented x3. Pulse 68, blood pressure 113/68, respirations 16, temperature 98.5, pulse ox 97% on room air. HEENT: Conjunctivae normal. Oral mucosa moist. Neck is no jugular venous distention. No carotid bruit. No lymph node enlargement. CARDIOVASCULAR: S1 and S2 muffled. RESPIRATORY: Breath sounds diminished at the bases. No rhonchi, no crackles. ABDOMEN: Soft, mild diffuse distention. Diffuse tenderness present. No guarding. No rigidity. Bowel sounds diminished. LEGS: No edema, no swelling. NERVOUS SYSTEM: No focal deficits. LABS: WBC 8.9, hemoglobin 10.3. Alkaline phosphatase is 228. ASSESSMENT: 1. Nausea, vomiting, abdominal pain, possibly gastritis, rule out gastric outlet obstruction. 2. Multiple findings on the CAT scan of the abdomen, possible metastatic malignancy, metastatic melanoma. 3. Hypertension. 4. Increased AST ALT. 5. Right upper lobe lesion, possibly melanoma. 6. History of vertigo. 7. Hypertension. 8. History of ankylosing spondylitis. 9. History of cholecystectomy. 10.History of anxiety. RECOMMENDATIONS AND DISCUSSION: Recommend to continue current medications and continues symptomatic treatment. Otherwise closely follow with Surgery, Dr. Koch. Guarded prognosis. Further recommendations to follow. MMODL / IJN: [id number] /
[2017-12-01 08:13] LABS: Basophils % (A) 1 %; Eosinophils # (A) 0.2 k/uL (0-0.7); Eosinophils % (A) 3 %; HCT 32.2 % (39.0-53.0); HGB 10.3 gm/dL (13.0-17.5); Hypochromasia Moderate; Lymphocytes # (A) 1.4 k/uL (1.0-4.8); Lymphocytes % (A) 21 %; MCH 25.6 pg (25.0-35.0); MCV 80.1 fL (80.0-100.0); Mean Platelet Volume 6.6; Monocytes # (A) 0.5 k/uL (0-1.0); Monocytes % (A) 8 %; Neutrophils # (A) 4.4 k/uL (1.3-7.7); Neutrophils % (A) 66 %; Platelet Count 469 k/uL (150-450); Poikilocytosis Slight; RBC 4.02 m/uL (4.30-5.90); RDW 14.4 % (11.5-15.5); WBC 6.7 k/uL (3.8-10.6)
[2017-12-01 08:28] LABS: ALT 57 U/L (21-72); AST 36 U/L (17-59); Albumin 3.4 g/dL (3.5-5.0); Alkaline Phosphatase 221 U/L (38-126); Anion Gap 9 mmol/L; Blood Urea Nitrogen 19 mg/dL (9-20); Calcium 8.9 mg/dL (8.4-10.2); Carbon Dioxide 24 mmol/L (22-30); Chloride 107 mmol/L (98-107); Glucose 99 mg/dL (74-99); Potassium 4.5 mmol/L (3.5-5.1); Sodium 140 mmol/L (137-145); Total Bilirubin 0.4 mg/dL (0.2-1.3); Total Protein 6.1 g/dL (6.3-8.2)
[2017-12-01] MEDS: PANTOPRAZOLE 40 MG/10 ML VIAL IVP SCH ×2 (08:28→20:38)
[2017-12-01] MEDS: HEPARIN SODIUM,PORCINE 5,000 UNIT/ML 1 ML VIAL SQ SCH ×2 (08:30→20:38)
[2017-12-01] MEDS: [UNRECOGNIZED DRUG - OTHER] PO SCH ×3 (08:31→20:38)
[2017-12-01] MEDS ORDERED: IV FLUID CONTINUATION 1,000 ML IV ONE (12:43)
[2017-12-01] MEDS ORDERED: PROPOFOL 10 MG/ML 20 ML VIAL IV ONE (12:47)
--- NOTE | 2017-12-01 13:13 | P.PCN ---
Date of Procedure: 12/01/17 Procedure(s) Performed: Preoperative Dx: Intractable vomiting Postoperative Dx: Duodenitis with small erosions, mild gastritis Procedure: EGD with Bx Anesthesia: Sedation Endoscopist: Dr. Koch Specimens: Duodenum, antrum Endoscopic Procedure: The patient was on the endoscopy table in the left decubitus position. The Olympus gastroscope was inserted into the oropharynx and passed under direct visualization to the region of the third portion of the duodenum. There was no narrowing of the duodenum appreciated. There was mild duodenitis with a few small erosions present in the first into the second portion of the duodenum. Biopsy of the duodenum took place. The pylorus was widely patent. The stomach was carefully inspected. There was gastritis present as well. A biopsy of the antrum took place to rule out H. pylori. Retroflexion revealed a normal hiatus. The esophagus was then carefully examined. There were no neoplastic inflammatory or polypoid lesions throughout the visualized esophagus. The patient was then taken to the recovery room in stable condition per anesthesia guidelines. Recommendations: Resume diet. Increase antiacid therapy. We'll discuss further with oncology
--- NOTE | 2017-12-01 13:34 | PN ---
PROGRESS NOTE DATE OF SERVICE: 12/01/2017 This 57-year-old gentleman with nausea, vomiting, abdominal pain, also had possibly duodenal obstruction also. Dr. Koch is planning an EGD today. No evidence of small- bowel obstruction was noted. No chest pain. No palpitations. No fever. PHYSICAL EXAMINATION: On exam, alert and oriented x3. Pulse 56, blood pressure 101/71, respiration 18 , temp 97.1, pulse ox 96% on room air. HEENT: Conjunctivae normal. Oral mucosa moist. Neck is no jugular venous distention. No carotid bruit. No lymph node enlargement. CARDIOVASCULAR: S1 and S2 muffled. RESPIRATORY: Breath sounds diminished at the bases. No rhonchi, no crackles. ABDOMEN: Soft. Mild diffuse distention. Mild diffuse discomfort on palpation. No guarding. No rigidity. No mass palpable. LEGS: No edema. NERVOUS SYSTEM: No focal deficits. LABS: WBC 6.2, hemoglobin 10.3, and alkaline phosphatase is 221. Albumin is 3.4. ASSESSMENT: 1. Nausea, vomiting, abdominal pain, possible acute gastritis, rule out gastric outlet obstruction. 2. _duodenal narrowing in the barium swallow. 3. Multiple findings on the CAT scan of the abdomen, possible metastatic malignancy with metastatic melanoma. 4. Hypertension. 5. Increased AST ALT. 6. Right upper lobe lesion, possibly melanoma. 7. History of vertigo. 8. Hypertension. 9. History of ankylosing spondylitis. 10.History of cholecystectomy. 11.History of anxiety. RECOMMENDATIONS AND DISCUSSION: Recommend to continue current medications, continue with monitoring and symptomatic treatment. EGD by Dr. Koch. Otherwise, continue the rest of medications and symptomatic treatment. Prognosis guarded. Discussed with the patient. Further recommendations to follow. See orders for details. MMODL / IJN: [id number] / MTDD
[2017-12-01] MEDS: METOCLOPRAMIDE 5 MG/ML 2 ML VIAL IVP SCH ×3 (14:17→23:42)
[2017-12-01 17:00] VITALS: RESP 18
[2017-12-01] MEDS: SUCRALFATE 1 GM TAB PO SCH (18:38)
[2017-12-02] MEDS: METOCLOPRAMIDE 5 MG/ML 2 ML VIAL IVP SCH ×2 (05:34→13:01)
[2017-12-02 05:45] VITALS: BP 105/63; PULSE 56; TEMP 98.3
[2017-12-02 07:35] LABS: Basophils % (A) 1 %; Eosinophils # (A) 0.3 k/uL (0-0.7); Eosinophils % (A) 4 %; HCT 31.6 % (39.0-53.0); HGB 10.4 gm/dL (13.0-17.5); Hypochromasia Slight; Lymphocytes # (A) 1.7 k/uL (1.0-4.8); Lymphocytes % (A) 24 %; MCH 26.3 pg (25.0-35.0); MCV 79.8 fL (80.0-100.0); Mean Platelet Volume 6.7; Monocytes # (A) 0.5 k/uL (0-1.0); Monocytes % (A) 8 %; Neutrophils # (A) 4.5 k/uL (1.3-7.7); Neutrophils % (A) 63 %; Platelet Count 479 k/uL (150-450); RBC 3.96 m/uL (4.30-5.90); RDW 14.6 % (11.5-15.5); WBC 7.1 k/uL (3.8-10.6)
[2017-12-02 07:45] LABS: Albumin 3.4 g/dL (3.5-5.0); Calcium 8.9 mg/dL (8.4-10.2); Potassium 4.2 mmol/L (3.5-5.1); Total Bilirubin 0.4 mg/dL (0.2-1.3); Total Protein 6.1 g/dL (6.3-8.2)
[2017-12-02] MEDS: SUCRALFATE 1 GM TAB PO SCH ×2 (08:02→13:01)
[2017-12-02] MEDS: HEPARIN SODIUM,PORCINE 5,000 UNIT/ML 1 ML VIAL SQ SCH (08:02)
[2017-12-02] MEDS: PANTOPRAZOLE 40 MG/10 ML VIAL IVP SCH (08:02)
[2017-12-02] MEDS: [UNRECOGNIZED DRUG - OTHER] PO SCH (08:02)
--- NOTE | 2017-12-02 18:03 | P.PN ---
Subjective Progress Note Date: 12/02/17 Principal diagnosis: Melanoma No acute complaints, would like to go home Objective - Vital Signs Vital signs: Vital Signs Temp 98.3 F 12/02/17 05:00 Pulse 56 L 12/02/17 08:00 Resp 18 12/02/17 08:00 BP 105/63 12/02/17 05:00 Pulse Ox 98 12/02/17 05:00 Intake & Output 12/01/17 12/02/17 12/02/17 18:59 06:59 18:59 Intake Total 780 1080 1440 Output Total 225 Balance 555 1080 1440 Weight 94.801 kg 94.801 kg Intake: IV 100 Oral 680 1080 1440 Output: Urine 225 Other: Voiding Method Urinal Toilet Toilet # Voids 2 2 3 - Exam Constitutional General appearance: cooperative, mild distress, obese - EENT Eyes: anicteric sclerae, EOMI ENT: oral thrush - Neck Neck: no lymphadenopathy - Respiratory Respiratory: bilateral: CTA (respirations are restricted due to abd pain) - Cardiovascular Rhythm: regular Heart sounds: normal: S1, S2 leg Peripheral Edema: bilateral: None - Gastrointestinal General gastrointestinal: distended, tenderness (severe) Localized gastrointestinal: tender: RUQ, LUQ (left flank) - Integumentary Integumentary: pale - Neurologic Neurologic: CNII-XII intact - Musculoskeletal Musculoskeletal: strength equal bilaterally - Psychiatric Psychiatric: A&O x's 3, appropriate affect, intact judgment & insight - Labs CBC & Chem 7: 12/02/17 06:39 12/02/17 06:39 Labs: Abnormal Lab Results - Last 24 Hours (Table) 12/02/17 12/02/17 Range/Units 06:39 06:39 RBC 3.96 L (4.30-5.90) m/uL Hgb 10.4 L (13.0-17.5) gm/dL Hct 31.6 L (39.0-53.0) % MCV 79.8 L (80.0-100.0) fL Plt Count 479 H (150-450) k/uL Glucose 120 H (74-99) mg/dL Alkaline Phosphatase 195 H (38-126) U/L Total Protein 6.1 L (6.3-8.2) g/dL Albumin 3.4 L (3.5-5.0) g/dL Microbiology - Last 24 Hours (Table) 11/28/17 14:19 Blood Culture - Preliminary Blood No Growth after 96 hours Assessment and Plan Plan: Chest x-ray: report reviewed CT scan - abdomen: report reviewed CT scan - chest: report reviewed CT scan - pelvis: report reviewed Assessment and Plan (1) Metastatic melanoma Narrative/Plan: Pt is currently on dabrafenib and tramtinib for metastatic melanoma since Apr 07. He has outside images of more recent CT scans that have been sent for review and comparison todays. It is unclear if the CT is progression or stability at this time. Await addendum Current Visit: Yes Status: Acute Priority: High Code(s): C79.9 - SECONDARY MALIGNANT NEOPLASM OF UNSPECIFIED SITE SNOMED Code(s): 661717736 (2) Abdominal pain Narrative/Plan: Titration and adjustment of analgesics Current Visit: Yes Status: Acute Priority: High Code(s): R10.9 - UNSPECIFIED ABDOMINAL PAIN SNOMED Code(s): 92024402 (3) Intractable nausea and vomiting Narrative/Plan: Improved slightly with antiemetics. Surgery consulted, barium swallow ordered, Status Post endoscopy today 12/02, Await Path Current Visit: Yes Status: Acute Priority: High Code(s): R11.2 - NAUSEA WITH VOMITING, UNSPECIFIED SNOMED Code(s): 790058924 (4) Oral thrush: - Discharge home on Nystatin Swish and Spit Will Follow-up in office for further recs from Oncology standpoint once path results
--- NOTE | 2017-12-02 18:33 | DS ---
DISCHARGE SUMMARY DATE OF SERVICE: 12/02/2017. FINAL DIAGNOSES: 1. Nausea, vomiting, abdominal pain, possible acute gastritis status post EGD showing some duodenal narrowing. 2. Multiple findings of the CT scan of the abdomen, possibly metastatic malignancy with malignant melanoma. 3. Hypertension. 4. Increased AST/ALT. 5. Right upper lobe lesion, possibly metastatic melanoma. 6. History of vertigo. 7. Hypertension. 8. History of ankylosing spondylitis. 9. History of cholecystectomy. 10.History of anxiety. DISCHARGE DISPOSITION: The patient being discharged in stable condition with guarded prognosis. HISTORY OF PRESENT ILLNESS: This 57-year-old gentleman with a past medical history of multiple medical problems, admitted with nausea, vomiting and abdominal pain. The patient also had features of some gastric outlet obstruction. The CT scan showed multiple findings as listed above. Dr. Koch performed EGD showed some duodenal stenosis. Patient improved significantly. Symptomatic treatment. On exam, vital signs stable. Cardiovascular: S1, S2. Abdomen is soft, nontender. Nervous system: No focal deficits. DISCHARGE ADVICE AND MEDICATIONS: 1. Discharge diet is cardiac diet. 2. Activity limited until followup. 3. Follow up with Dr. England in 2 to 3 days. 4. Follow up with as advised. 5. Follow up with Dr. Sandoval as recommended. MEDICATIONS ARE: 1. Cozaar 50 mg p.o. daily. 2. Toprol-XL 50 mg. 3. Sudafed p.r.n. 4. Tafinlar 2 tablets p.o. b.i.d. 5. Mekinist 0.5 mg p.o. daily. 6. Protonix 40 mg p.o. b.i.d. 7. Carafate 1 g a.c. t.i.d. Once again, the patient is being discharged in stable condition with guarded prognosis. MMODL / IJN: [id number] / MTDD
== END 2017-12-02 15:45 | disposition home or self-care (01) | DRG 392 ==
LOC: EC 13:43 → 5ONC 16:17
PROVIDERS: ADMIT Internal Medicine; ATTEND Internal Medicine
PROC: 0DB78ZX Excision of Stomach, Pylorus, Via Natural or Artificial Opening Endoscopic, Diagnostic (ICD-10-PCS; 2017-12-01)
PROC: 0DB98ZX Excision of Duodenum, Via Natural or Artificial Opening Endoscopic, Diagnostic (ICD-10-PCS; principal; 2017-12-01 13:00)
DX: K29.00 Acute gastritis without bleeding (principal); B37.0 Candidal stomatitis; C78.01 Secondary malignant neoplasm of right lung; C78.6 Secondary malignant neoplasm of retroperitoneum and peritoneum; K31.1 Adult hypertrophic pyloric stenosis; K31.5 Obstruction of duodenum; Z85.820 Personal history of malignant melanoma of skin; I10 Essential (primary) hypertension; K21.9 Gastro-esophageal reflux disease without esophagitis; K29.80 Duodenitis without bleeding; K76.0 Fatty (change of) liver, not elsewhere classified; M45.9 Ankylosing spondylitis of unspecified sites in spine; Z85.118 Personal history of other malignant neoplasm of bronchus and lung; Z87.891 Personal history of nicotine dependence; Z88.6 Allergy status to analgesic agent; Z88.8 Allergy status to other drugs, medicaments and biological substances; Z79.899 Other long term (current) drug therapy; R42 Dizziness and giddiness; M10.9 Gout, unspecified; R01.1 Cardiac murmur, unspecified; M48.00 Spinal stenosis, site unspecified; Z83.79 Family history of other diseases of the digestive system; F41.9 Anxiety disorder, unspecified; H93.13 Tinnitus, bilateral; Z92.21 Personal history of antineoplastic chemotherapy
CPT/HCPCS: 36415; 43239; 71046; 71260; 74177; 74245; 80053; 80306; 81003; 82150; 83690; 85025; 85610; 85730; 87040; 88305; 96361; 96374; 96375; 99285